=== PATIENT | male | born 1950 | race Caucasian/White ===

== ENCOUNTER 2025-01-31 08:58 | Inpatient (IN) | payer OTHER, SELFPAY ==
--- NOTE | 2024-11-08 11:30 | CM ---
Addendum entered by Arleth Prince RN 11/14/24 14:13:
CM was updated by patient that he is now willing to participate in PT. Patient confirmed that he would be agreeable to [facility]. Cm advised patient to make an appointment post operatively.
Addendum entered by Arleth Prince RN 11/08/24 14:08:
Matilde is aware of CM concerns regarding patient's refusal of post operative PT. She will escalate to Dr. Boland.
Original Note:
CM reviewed medical records. CM spoke with patient via live telephone. Patient confirmed that he lives independently with . Patient does not have a history of VN or SNF. Patient did participate in PT post CABG. Patient stated that he is not
interested in outpatient physical therapy because he does not believe there 'value' to it. Patient stated that he may be willing to participate in 'a couple of sessions', but beyond that he is not willing to participate.
CM expressed concern regarding patient's position on physical therapy. CM reinforced it it part of the required post operative recovery. Patient persisted and stated that he was 'undecided'.
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 CM escalated concerns to the in house orthopedic PA. CM was further advised to contact [facility] with concerns.
PLAN: Pending
[2025-01-18 10:51] LABS: Hematocrit 44.5 % (39.0-52.0); Hemoglobin 14.9 g/dL (13.0-18.0); Mean Corp Hgb Conc. 33.5 g/dL (33.0-37.0); Mean Corpuscular Volume 92.9 fL (80.0-94.0); Platelet Count 219 10^3/uL (130-400); Red Cell Dist. Width 13.5 % (11.5-14.5)
[2025-01-18 11:37] LABS: ALT (SGPT) 29 U/L (0-50); AST (SGOT) 29 U/L (17-59); Albumin 4.3 g/dl (3.5-5.0); Alkaline Phosphatase 91 U/L (38-126); Blood Urea Nitrogen 17 mg/dl (9-20); Calcium 9.6 mg/dl (8.4-10.2); Carbon Dioxide 25 mmol/L (22-30); Chloride 109 mmol/L (98-107); Glucose 164 mg/dl (70-99); Potassium 4.5 mmol/L (3.5-5.1); Sodium 142 mmol/L (135-145); Total Protein 6.6 g/dl (6.3-8.2); eGFR > 60.00
[2025-01-18 11:44] LABS: Glycohemoglobin (HgbA1c) 7.0 % (4.0-5.6)
[2025-01-18 14:13] VITALS: BMI 27.5
[2025-01-22 09:22] VITALS: BMI 27.5
[2025-01-31] VITALS (15 sets, daily range): BP systolic 88–148; BP diastolic 59–88; PULSE 61–64; O2SAT 96; BMI 27.5
[2025-01-31 09:15] LABS: Glucose - Point of Care 149 mg/dl (70-99)
[2025-01-31] MEDS: NORMOSOL-R/PLASMALYTE-A 1000 IV ×2 (09:20→13:30)
[2025-01-31] MEDS: CELEBREX 200 MG PO (09:21)
[2025-01-31] MEDS: TYLENOL 650 MG PO ×4 (09:21→23:31)
--- NOTE | 2025-01-31 09:57 | W.PN.ORTHO ---
Today's Communication / Plan
-
d/c when stable
Assessment
.
Dressing:
Clean, dry and intact.
Assessment:
CAD, CABG x3, 2022, GSATON-LAD, free radial T off GASTON-OM1, OM2
-asa,tele,statin,BB
NIDDM
Lantus,Novolog, Jardiace-Cefadroxil ppx OP Rx
Plan
.
Surgery / Date: R RUFINA Dr Boland 01/31/25
DVT Prophylaxis: Aspirin
Activity:
Out of bed.
PT/OT
Discharge Plan: Home w/ Outpatient PT
Vital Signs and Labs
.
Vital Signs and Labs:
Lab Results
01/18/25 10:25
01/18/25 10:25
Temp Pulse Resp BP Pulse Ox
97.3 F 74 12 128/84 97
01/31/25 09:05 01/31/25 09:05 01/31/25 09:05 01/31/25 09:05 01/31/25 09:05
--- NOTE | 2025-01-31 10:06 | W.DS.TRANS ---
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
-
Discharge Instructions:
Sleep Apnea Risk Intermediate
Discharge Diagnosis/Procedures R RUFINA Dr. Boland 01/31/25
Diet As tolerated,Diabetic, Carb Controlled
Activity With Walker
Driving Restrictions No driving
Bathing Restrictions OK to Shower
Other Services PT
Instructions:
Stand-Alone Forms: Total Hip/Knee Replacement D/C
Changes to Home Medications: Yes
Discharge Medications:
DC Medications w/original date entered in [employer]
allopurinol 300 mg tablet 300 mg PO DAILY 01/17/25
atorvastatin 40 mg tablet 80 mg PO HS 01/17/25
baclofen 10 mg tablet 10 mg PO PRN PRN spasms 01/17/25
cyclosporine 0.05 % eye drops in a dropperette (Restasis) 1 drp ophthalmic (eye) Q12H 01/17/25
empagliflozin 10 mg tablet (Jardiance) 10 mg PO DAILY 01/17/25
gabapentin 100 mg tablet 500 mg PO QPM 01/17/25
metformin 500 mg tablet 500 mg PO BID 01/17/25
metoprolol succinate 50 mg tablet,extended release 24 hr (Toprol XL) 25 mg PO DAILY 01/17/25
semaglutide 1 mg/dose (4 mg/3 mL) subcutaneous pen injector (Ozempic) 1 mg SC BUENO 01/17/25
tadalafil 10 mg tablet (Cialis) 10 mg PO DAILY PRN ED 01/17/25
Held on 01/31/25. Instructions: Resume on 02/03/25.
cefadroxil 500 mg capsule 500 mg PO BID infection prevention #14 caps 01/18/25
celecoxib 200 mg capsule 200 mg PO DAILY Anti-inflammatory #14 caps 01/18/25
famotidine 20 mg tablet 20 mg PO HS GI prophylaxis #30 tabs 01/18/25
mupirocin 2 % topical ointment 1 applic topical BID infection prevention #1 tube 01/18/25
ondansetron 4 mg disintegrating tablet 4 mg PO Q6H PRN n/v #20 tabs 01/18/25
oxycodone 5 mg tablet 5 mg PO Q6H PRN 1 tab moderate pain, 2 tabs severe pain #30 tabs 01/18/25
tamsulosin 0.4 mg capsule 0.4 mg PO HS #7 caps 01/18/25
Saccharomyces boulardii 250 mg capsule (Florastor) 250 mg PO BID #1 cap 01/31/25
acetaminophen 325 mg tablet (Tylenol) 650 mg (2 x 325 mg) PO QID #1 tab 01/31/25
aspirin 325 mg tablet 325 mg PO DAILY blood clot prevention #1 tab 01/31/25
docusate sodium 100 mg capsule (Colace) 100 mg PO BID stool softner #1 cap 01/31/25
magnesium hydroxide 400 mg/5 mL oral suspension (Milk of Magnesia) 30 ml PO HS PRN constipation #1 mL 01/31/25
olmesartan 40 mg tablet 40 mg PO QPM #0 tabs 01/31/25
sennosides 8.6 mg tablet (Senokot) 17.2 mg (2 x 8.6 mg) PO BID laxative #2 tabs 01/31/25
Home Medication Changes
cefadroxil 500 mg capsule 500 mg PO BID infection prevention #14 caps 01/18/25
celecoxib 200 mg capsule 200 mg PO DAILY Anti-inflammatory #14 caps 01/18/25
famotidine 20 mg tablet 20 mg PO HS GI prophylaxis #30 tabs 01/18/25
mupirocin 2 % topical ointment 1 applic topical BID infection prevention #1 tube 01/18/25
ondansetron 4 mg disintegrating tablet 4 mg PO Q6H PRN n/v #20 tabs 01/18/25
oxycodone 5 mg tablet 5 mg PO Q6H PRN 1 tab moderate pain, 2 tabs severe pain #30 tabs 01/18/25
tamsulosin 0.4 mg capsule 0.4 mg PO HS #7 caps 01/18/25
Saccharomyces boulardii 250 mg capsule (Florastor) 250 mg PO BID #1 cap 01/31/25
acetaminophen 325 mg tablet (Tylenol) 650 mg (2 x 325 mg) PO QID #1 tab 01/31/25
aspirin 325 mg tablet 325 mg PO DAILY blood clot prevention #1 tab 01/31/25
docusate sodium 100 mg capsule (Colace) 100 mg PO BID stool softner #1 cap 01/31/25
magnesium hydroxide 400 mg/5 mL oral suspension (Milk of Magnesia) 30 ml PO HS PRN constipation #1 mL 01/31/25
olmesartan 40 mg tablet 40 mg PO QPM #0 tabs 01/31/25
sennosides 8.6 mg tablet (Senokot) 17.2 mg (2 x 8.6 mg) PO BID laxative #2 tabs 01/31/25
Pending Results: No
--- NOTE | 2025-01-31 12:01 | OR.RPT ---
Operative Report
Operative Report
Orthopaedic Surgery Operative Note
DATE OF OPERATION: 01/31/2025
PREOPERATIVE DIAGNOSES: Osteoarthritis, right hip
POSTOPERATIVE DIAGNOSES: Same
OPERATION PERFORMED: Right total hip arthroplasty.
SURGEON: Hunter Boland MD
DRAPERY CUTTER MACHINE: Andi Cornejo PA-C who assisted with patient positioning and retraction
ANESTHESIA: Spinal
COMPLICATIONS: None.
ESTIMATED BLOOD LOSS: 50 mL.
DRAINS: None
SPECIMEN: None
FINDINGS: Advanced articular cartilage wear on the femoral head and acetabulum.
IMPLANTS:
Biomet G7 Acetabular Shell, cluster hole, size 64
Biomet G7 Highly Crosslinked PE Liner, neutral
Aníbal M/L Taper femoral stem, size 12.5 with standard neck length and extended offset
Biolox Ceramic Head, size 40mm +0
INDICATIONS: The patient presented to my office with debilitating right hip pain due to osteoarthritis. We reviewed the natural history of this problem, as well as the risks, benefits, and alternatives of various treatment options. The patient
exhausted all nonoperative treatment options and wished to proceed with hip replacement surgery. The patient understood the risks which included, but were not limited to, bleeding, infection, failure to relieve pain, more pain than preop, damage to
blood vessels and nerves, need for reoperation, mechanical failure of the implants, wound healing problems, stiffness, instability, blood clot, pulmonary embolism, myocardial infarction, pneumonia, arrhythmia, CVA, and . The patient accepted
these risks and wished to proceed. All questions were answered, and informed consent was obtained.
PROCEDURE IN DETAIL: The patient was identified in the preoperative holding area. The right hip was identified as the operative site. The patient was taken in the operating room and transferred to the operative table. Spinal anesthesia was
performed. IV antibiotics and tranexamic acid were administered. The patient was placed in the lateral position with Stulberg hip positioners. Axillary roll was placed. The down leg was well padded. All bony prominences were well padded. The
operative limb was prepped and draped in the usual sterile fashion.
Time out was performed. A posterolateral approach to the hip was used. The skin incision was centered over the greater trochanter. This was taken down sharply through subcutaneous tissues. Meticulous hemostasis was achieved throughout the case with
electrocautery. We split the fascia pamela in line with skin incision. I split the gluteus lissy bluntly. We cauterized all crossing vessels as we split it. I palpated the sciatic nerve and made sure it was well posterior in the operative field. It
was protected throughout the case.
I performed a partial bursectomy to identify the short external rotators. The gluteus medius and minimus were identified and retracted anteriorly. I incised the piriformis tendon and conjoint tendon at their insertions. These were tagged for later
repair. I then performed a trapezoidal capsulotomy. The edges were tagged for later repair. I referenced the cut edge of the capsular flap to 2 fixed points on the greater trochanter for assistance with recreation of limb length and offset. I then
dislocated the hip posteriorly. I performed a femoral neck osteotomy approximately 10 mm above the lesser trochanter, as per preoperative templating. The femoral head measured 61 mm in outer diameter. The distance between neck cut and the center of
femoral head was 40mm. I placed a curve hohmann retractor over the anterior lip of the acetabulum between the labrum and the anterior hip capsule. A second retractor was placed inferiorly just distal to the transverse acetabular ligament.
Circumferential view of the acetabulum was achieved. I incised the labrum and pulvinar with electrocautery. I started with a 59 mm reamer and reamed down to the medial wall. I then sequentially reamed up to a 63mm reamer. This gave a nice bed of
bleeding bone with excellent column support anteriorly and posteriorly. I impacted the acetabular shell in approximately 40 degrees of abduction and 20 degrees of anteversion. I matched the anteversion of the transverse acetabular ligament. I also
made sure that the anterior rim of the socket was not proud of the anterior wall to minimize the chance of iliopsoas tendinitis. I confirmed the cup was well-seated. I then impacted a neutral liner and confirmed it was well seated with the locking
mechanism.
On the femoral side, I use a box osteotome to open the proximal starting point. I found the canal with a Charnley awl and a lateralizing reamer. I then used the Aníbal M/L taper broaches sequentially to prepare the femoral canal. The size 12.5 came
to a stop at the desired level and had excellent axial and rotational stability. We trialed with a trial ball head. The hip was taken through a complete range of motion. It was noted to be stable in extension without impingement. It was stable in
the position of sleep and in flexion with internal rotation. The limb length and offset were checked compared to the capsular flap and was appropriate. The measured length between the neck cut and center of the trial femoral head was 40mm.
I removed the trials. I impacted the femoral implant to match the akiak version. It had excellent axial and rotational stability. Trial ball head was placed, and I reduced the hip and took the hip through range of motion. There was no impingement
in external rotation and extension. Position of sleep was stable. At 90 degrees of flexion and slight adduction, the hip could be internally rotated to 90 degrees with no subluxation. I palpated the sciatic nerve, which was tension free and
unharmed. Based on our capsular flap measurement, we had restored the offset and leg length. The trial ball head was removed, and the final ball head was impacted onto a clean and dry Wallace taper. The hip was reduced.
A dilute betadine soak was performed for approximately 3 minutes, and then the hip was copiously irrigated. I repaired the capsule, piraformis, and conjoint tendon with #2 Ethibond to drill holes in the greater trochanter. Local anesthetic was
injected. The fascia pamela was closed with #1 PDS in running fashion. The subcutaneous tissues were closed with 2-0 PDS in running fashion. The skin was reapproximated with 3-0 Monocryl subcuticular suture. I placed a Prineo dressing followed by a
Mepilex Ag dressing. The patient awoke from anesthesia without difficulty. Sponge and instrument counts were correct x2 at the end of the case.
I was present and participated in the entire procedure. The patient was sent to the recovery room in stable condition.
Juan Diego Boland MD
[2025-01-31 12:12] LABS: Glucose - Point of Care 177 mg/dl (70-99)
[2025-01-31] MEDS: ROXICODONE 5 MG PO (12:49)
--- NOTE | 2025-01-31 13:15 | PTCARENOTE ---
Received patient at 1315 from PACU. Patient AAOx3, c/o mild ache in right hip, ice pack applied, call dorsey in reach. Patient tolerating clear liquids, ordering lunch now. Spouse at bedside. Plan of care reviewed with patient and his spouse.
[2025-01-31] MEDS: LANTUS 0.05 UNITS SC (14:33)
[2025-01-31] MEDS: TYLENOL PO (14:39)
--- NOTE | 2025-01-31 16:51 | PTCARENOTE ---
Patient tolerated sitting in chair for 1hr. Patient ambulated with walker and supervision to bathroom. Patient voided large amount of urine. Patient rate right hip pain 3/10, denies need for pain med at present. Patient tolerated 100% of lunch meal.
[2025-01-31 17:42] LABS: Glucose - Point of Care 281 mg/dl (70-99)
[2025-01-31] MEDS: NOVOLOG FLEXPEN-MODERATE RESISTANCE 5 UNITS SC (17:55)
[2025-01-31] MEDS: RESTASIS 0.05% OPHTHALMIC EMULSION 1 DROPS OPHTH (17:56)
[2025-01-31] MEDS: NEURONTIN 400 MG PO (17:57)
[2025-01-31] MEDS: ANCEF 5 IV (17:57)
[2025-01-31] MEDS: NEURONTIN 100 MG PO (17:57)
[2025-01-31] MEDS: ASPIRIN 325 MG PO (17:57)
[2025-01-31] MEDS: BENICAR 20 MG PO (17:57)
[2025-01-31] MEDS: ZYLOPRIM 300 MG PO (17:57)
[2025-01-31] MEDS: DECADRON 2 MG IV (17:58)
[2025-01-31] MEDS: TORADOL 15 MG IV (17:58)
[2025-01-31] MEDS: BACTROBAN 2% OINTMENT 1 APPLIC NASAL (19:32)
[2025-01-31] MEDS: SENOKOT 17.2 MG PO (19:34)
[2025-01-31] MEDS: COLACE 100 MG PO (19:34)
[2025-01-31] MEDS: LIORESAL 10 MG PO (19:36)
[2025-01-31 21:25] LABS: Glucose - Point of Care 233 mg/dl (70-99)
[2025-01-31] MEDS: LIPITOR 80 MG PO (21:29)
[2025-01-31] MEDS: GLUCOPHAGE 500 MG PO (21:29)
[2025-01-31] MEDS: PEPCID 20 MG PO (21:29)
[2025-02-01] MEDS: ANCEF 5 IV (01:37)
[2025-02-01] MEDS: RESTASIS 0.05% OPHTHALMIC EMULSION OPHTH (01:37)
[2025-02-01 03:00] VITALS: BP 127/71
[2025-02-01] MEDS: TYLENOL PO (04:51)
[2025-02-01] MEDS: TORADOL 15 MG IV (05:30)
[2025-02-01] MEDS: DECADRON 2 MG IV (05:30)
[2025-02-01 06:55] VITALS: BP 126/73
[2025-02-01 07:13] LABS: Glucose - Point of Care 153 mg/dl (70-99)
[2025-02-01 08:45] VITALS: BP 136/85; PULSE 71; O2SAT 93
[2025-02-01] MEDS: BACTROBAN 2% OINTMENT 1 APPLIC NASAL (08:51)
[2025-02-01] MEDS: ASPIRIN 325 MG PO (08:52)
[2025-02-01] MEDS: COLACE 100 MG PO (08:53)
[2025-02-01] MEDS: CELEBREX 200 MG PO (08:54)
[2025-02-01] MEDS: GLUCOPHAGE 500 MG PO (08:55)
[2025-02-01] MEDS: FARXIGA 10 MG PO (08:55)
[2025-02-01] MEDS: SENOKOT 17.2 MG PO (08:56)
[2025-02-01] MEDS: LIORESAL 10 MG PO (08:56)
[2025-02-01] MEDS: TYLENOL 650 MG PO (08:57)
[2025-02-01] MEDS: ZYLOPRIM 300 MG PO (08:58)
[2025-02-01] MEDS: LANTUS 0.05 UNITS SC (08:59)
[2025-02-01] MEDS: NOVOLOG FLEXPEN-MODERATE RESISTANCE 1 UNITS SC (09:00)
[2025-02-01 10:12] VITALS: BP 129/78; BP 136/78; PULSE 75; O2SAT 97
--- NOTE | 2025-02-01 10:15 | W.PN.ORTHO ---
Today's Communication / Plan
-
d/c
Assessment
.
Distal Motor Intact: Yes
Dressing:
Clean, dry and intact.
Assessment:
CAD, CABG x3, 2022, GASTON-LAD, free radial T off GASTON-OM1, OM2
-asa,tele,statin,BB-stable
NIDDM
Lantus,Novolog, Jardiace-Cefadroxil ppx OP Rx--sugars stable
Plan
.
Surgery / Date: R RUFINA Dr Boland 01/31/25
DVT Prophylaxis: Aspirin
Activity:
Out of bed.
PT/OT
Discharge Plan: Home w/ Outpatient PT
Subjective
.
.:
Patient resting comfortably.
Vital Signs and Labs
.
Vital Signs and Labs:
Lab Results
01/18/25 10:25
01/18/25 10:25
Temp Pulse Resp BP Pulse Ox
98 F 68 16 126/73 94
02/01/25 03:00 02/01/25 08:58 02/01/25 03:00 02/01/25 08:58 02/01/25 03:00
Non-invasive Hgb result: 13.8
Physical Exam
-
HEENT: No pallor, cyanosis, or jaundice. Throat clear.
NECK: Supple. No JVD.
RESPIRATORY: Lungs clear to auscultation.
CVS: S1, S2 normal. RRR.� No murmur, rub or gallop.
ABDOMEN: Soft, non-tender. No distension. BS+/normal.
EXTREMITIES: strength equal, no calf pain with palpation
HISTORICAL INTERPRETER: AOx3. No focal deficits. group worker grossly intact
[2025-02-01 11:00] VITALS: BP 128/83
== END 2025-02-01 11:27 | disposition home or self-care (01) | DRG 470 ==
LOC: 2 SOUTH 08:58
PROVIDERS: ADMITTING PHYSICIAN Orthopaedic Surgery; FAMILY PHYSICIAN Family Medicine
PROC: 0SR904Z Replacement of Right Hip Joint with Ceramic on Polyethylene Synthetic Substitute, Open Approach (ICD-10-PCS; 2025-01-31)
DX: M16.11 Unilateral primary osteoarthritis, right hip (principal); I25.10 Atherosclerotic heart disease of native coronary artery without angina pectoris; I10 Essential (primary) hypertension; E78.5 Hyperlipidemia, unspecified; M10.9 Gout, unspecified; N40.0 Benign prostatic hyperplasia without lower urinary tract symptoms; E11.9 Type 2 diabetes mellitus without complications; Z95.1 Presence of aortocoronary bypass graft; Z85.820 Personal history of malignant melanoma of skin; Z79.82 Long term (current) use of aspirin; Z79.84 Long term (current) use of oral hypoglycemic drugs; Z79.85 Long-term (current) use of injectable non-insulin antidiabetic drugs
CPT/HCPCS: 36415; 73502; 80053; 82962; 83036; 85027; 87070; 97110; 97116; 97162; 97166; 97530; 97535